=== PATIENT | female | born 1955 | race Caucasian/White ===

== ENCOUNTER → 2021-10-28 | Outpatient (CLI) | payer OTHER ==
--- NOTE | 2021-10-29 07:52 | RAD ---
XR HIP (WITH OR WITHOUT PELVIS) 1 VIEW 10/28/2021 1:30 PM INDICATION: Bilateral hip pain COMPARISON: None available. TECHNIQUE: AP view of pelvis and single view of each hip provided. FINDINGS/ IMPRESSION: There is no acute fracture or dislocation. Mild inferomedial joint space narrowing involving the hips bilaterally without significant subcortical sclerosis marginal osteophytosis compatible with mild os teoarthrosis. Bone mineralization is within normal limits. Regional soft tissues are within normal li mits. There is no soft tissue gas or osseous erosion. No radiopaque foreign body. Electronically signed by: Kellie Cool MD (10/29/2021 7:50 AM) [id number]
== END ==
LOC: RAD 13:27
PROVIDERS: ATTEND Family Medicine
DX: G89.29 Other chronic pain (principal); M25.851 Other specified joint disorders, right hip; M25.852 Other specified joint disorders, left hip
CPT/HCPCS: 73521